=== PATIENT | female | born 1985 | race Caucasian/White ===

== ENCOUNTER 2017-05-16 06:43 | Emergency (ER) | payer OTHER ==
[~2017-05-16] VITALS: Ht 175.3 cm; Wt 152.4 kg
[~2017-05-16 06:43] MED LIST: ALBU90OI61 INH; ALPR.5 PO; AMOCLA500 PO; AMOX500 PO; CEPH500 PO; CRUTCH4 USE; CYCL10 PO; FAMO20 PO; HYDACE5 PO; HYDACE5325 PO; HYDR1TAB94 PO; IBUP800 PO; LORA.5; LORA1; LORA1 PO; LORA2 PO; METO50; NAPR500 PO; NITR100CA PO; Norco 5-325 Ta1 EACH PO; OXYACE5T PO; PENVK250 PO; PRED20 PO; PROACE100 PO; PROM25 PO; PSEU120ER PO; Percocet 5-3251 EACH PO; RXONDA4ODT MM; SULTRIDS PO; SUMA25 PO; Zofran Odt8 MG SL
[2017-05-16 07:49] LABS: BASOPHILS ABSOLUTE AUTO 0.07 K/mm3 (0.00-0.23); BASOPHILS PERCENT AUTO 1 % (0-2); EOSINOPHILS ABSOLUTE AUTO 0.43 K/mm3 (0.00-0.68); EOSINOPHILS PERCENT AUTO 5 % (0-6); Hemoglobin 12.1 g/dL (11.5-16.0); IMMATURE GRAN ABSOLUTE AUTO 0.04 K/mm3 (0.00-0.10); IMMATURE GRAN PERCENT AUTO 0 % (0-1); LYMPHOCYTES ABSOLUTE AUTO 3.66 K/mm3 (0.84-5.20); LYMPHOCYTES PERCENT AUTO 39 % (21-46); MONOCYTES ABSOLUTE AUTO 0.55 K/mm3 (0.16-1.47); MONOCYTES PERCENT AUTO 6 % (4-13); Mean Corpuscular HGB 28.2 pg (26.0-34.0); Mean Corpuscular HGB Conc 31.8 g/dL (31.5-36.5); Mean Corpuscular Volume 89 fL (80-100); Mean Platelet Volume 10.1 fL (9.1-12.4); NEUTROPHILS ABSOLUTE AUTO 4.58 K/mm3 (1.96-9.15); NEUTROPHILS PERCENT AUTO 49 % (41-73); Platelet Count 255 K/mm3 (150-400); RDW Coefficient Variation 12.7 % (11.7-14.2); Red Blood Cell Count 4.29 M/mm3 (3.80-5.20); White Blood Cell Count 9.33 K/mm3 (4.00-11.30)
[2017-05-16 08:10] LABS: Alanine Aminotransfer (ALT/SGP 28 U/L (12-78); Albumin, Blood 2.9 g/dL (3.4-5.0); Albumin/Globulin Ratio 0.8 (0.8-1.8); Alk Phos 89 U/L (50-136); Anion Gap 7 mmol/L (6-16); Aspartate Aminotrans (AST/SGOT 18 U/L (12-37); Bilirubin, Total 0.4 mg/dL (0.1-1.0); Blood Urea Nitrogen 13 mg/dL (8-24); Bun/Creatinine Ratio 19.4 (12.0-20.0); CO2, Blood 27 mmol/L (21-32); Calcium, Blood 8.1 mg/dL (8.5-10.1); Chloride, Blood 106 mmol/L (98-108); Creatinine, Blood 0.67 mg/dL (0.40-1.00); Globulin, Blood 3.7 g/dL (2.2-4.0); Glomerular Filtration Rate >60 (60-); Glucose, Blood 92 mg/dL (70-99); Potassium, Blood 3.9 mmol/L (3.5-5.5); Sodium, Blood 140 mmol/L (136-145); Total Protein, Blood 6.6 g/dL (6.4-8.2); Troponin I <0.015 ng/mL (0.000-0.040)
[2017-05-16 08:17] LABS: Bilirubin, Urine Neg (Neg); Blood, Urine 1+ (Neg); Glucose Qualitative, Urine Neg (Neg); Ketones, Urine Neg (Neg); Leukocyte Esterase, Urine 2+ (Neg); Nitrite, Urine Pos (Neg); Protein, Urine 1+ (Neg); Specific Gravity, Urine 1.025 (1.003-1.022); Urobilinogen, Urine NORM (Normal)
[2017-05-16 08:25] LABS: Appearance, Urine Hazy (Clear); Color, Urine Yellow (P-Yellow)
[2017-05-16 08:30] LABS: Bacteria Mod /hpf; Squamous Epithelial Cells Mod /hpf (Few)
[2017-08-20] MEDS ORDERED: ENOX100I (21:53)
[2017-08-20] MEDS ORDERED: Verotin-Gr Cap1 EACH PO (21:53)
[2017-08-20] MEDS ORDERED: FOLI400 PO (21:54)
[2017-08-20] MEDS ORDERED: Benadryl25 MG PO (22:57)
[2018-02-26] MEDS ORDERED: Aspir 8181 MG PO (05:58)
[2018-03-01] MEDS ORDERED: Percocet 5-3251 EACH PO (09:55)
[2018-03-01] MEDS ORDERED: Coumadin1 MG (09:56)
[2018-03-01] MEDS ORDERED: WARF5 (09:56)
== END 2017-05-16 09:35 | disposition home or self-care (01) ==
LOC: ER 06:43
PROVIDERS: Emergency Medicine
DX: F41.9 Anxiety disorder, unspecified (principal); E88.09 Other disorders of plasma-protein metabolism, not elsewhere classified; Z88.8 Allergy status to other drugs, medicaments and biological substances; Z88.5 Allergy status to narcotic agent
CPT/HCPCS: 36415; 71046; 80053; 81001; 81025; 83735; 84484; 85025; 87086; 93005; 93010; 99283

== ENCOUNTER 2017-08-22 08:10 | Emergency (ER) | payer OTHER ==
[~2017-08-22] VITALS: Ht 175.3 cm; Wt 153.3 kg
[~2017-08-22 08:10] MED LIST changes: +Benadryl25 MG PO; +ENOX100I; +FOLI400 PO; +Verotin-Gr Cap1 EACH PO
[2017-08-22] MEDS ORDERED: Vitamin B Comple1 EA (08:32)
== END 2017-08-22 09:16 | disposition home or self-care (01) ==
LOC: ER 08:10
DX: O99.111 Other diseases of the blood and blood-forming organs and certain disorders involving the immune mechanism complicating pregnancy, first trimester (principal); D68.51 Activated protein C resistance; O99.341 Other mental disorders complicating pregnancy, first trimester; F41.9 Anxiety disorder, unspecified; Z88.8 Allergy status to other drugs, medicaments and biological substances; Z88.5 Allergy status to narcotic agent; Z79.899 Other long term (current) drug therapy; Z3A.09 9 weeks gestation of pregnancy
CPT/HCPCS: 36415; 85730; 96372; 99283; J1644

== ENCOUNTER 2017-08-25 20:08 | Emergency (ER) | payer OTHER ==
[~2017-08-25] VITALS: Ht 175.3 cm; Wt 153.3 kg
[~2017-08-25 20:08] MED LIST changes: +Vitamin B Comple1 EA
[2017-08-25 21:24] LABS: BASOPHILS ABSOLUTE AUTO 0.05 K/mm3 (0.00-0.23); BASOPHILS PERCENT AUTO 0 % (0-2); EOSINOPHILS ABSOLUTE AUTO 0.73 K/mm3 (0.00-0.68); EOSINOPHILS PERCENT AUTO 6 % (0-6); Hematocrit 37.1 % (33.0-51.0); Hemoglobin 12.1 g/dL (11.5-16.0); IMMATURE GRAN ABSOLUTE AUTO 0.04 K/mm3 (0.00-0.10); IMMATURE GRAN PERCENT AUTO 0 % (0-1); LYMPHOCYTES ABSOLUTE AUTO 3.81 K/mm3 (0.84-5.20); LYMPHOCYTES PERCENT AUTO 32 % (21-46); MONOCYTES ABSOLUTE AUTO 0.67 K/mm3 (0.16-1.47); MONOCYTES PERCENT AUTO 6 % (4-13); Mean Corpuscular HGB 28.8 pg (26.0-34.0); Mean Corpuscular HGB Conc 32.6 g/dL (31.5-36.5); Mean Corpuscular Volume 88 fL (80-100); Mean Platelet Volume 10.3 fL (9.1-12.4); NEUTROPHILS ABSOLUTE AUTO 6.74 K/mm3 (1.96-9.15); NEUTROPHILS PERCENT AUTO 56 % (41-73); Platelet Count 270 K/mm3 (150-400); RDW Coefficient Variation 13.2 % (11.7-14.2); RDW Standard Deviation 42.3 fL (35.1-46.3); White Blood Cell Count 12.04 K/mm3 (4.00-11.30)
[2017-08-25 21:54] LABS: International Normalized Ratio 0.93; Prothrombin Time Results 9.6 Sec (9.7-11.5)
== END 2017-08-25 22:07 | disposition home or self-care (01) ==
LOC: ER 20:08
PROVIDERS: Physician Assistant
DX: O99.89 Other specified diseases and conditions complicating pregnancy, childbirth and the puerperium (principal); R21 Rash and other nonspecific skin eruption; Z3A.10 10 weeks gestation of pregnancy; Z88.8 Allergy status to other drugs, medicaments and biological substances; Z88.5 Allergy status to narcotic agent; Z79.899 Other long term (current) drug therapy
CPT/HCPCS: 36415; 85025; 85610; 85730; 99283

== ENCOUNTER 2018-05-06 11:33 | Emergency (ER) | payer OTHER ==
[~2018-05-06] VITALS: Ht 172.7 cm; Wt 156.5 kg
[~2018-05-06 11:33] MED LIST changes: +Aspir 8181 MG PO; +Coumadin1 MG; +WARF5
[2018-05-06] MEDS ORDERED: CLARITIN10 MG PO (12:22)
== END 2018-05-06 12:26 | disposition home or self-care (01) ==
LOC: ER 11:33
DX: L23.9 Allergic contact dermatitis, unspecified cause (principal); F41.9 Anxiety disorder, unspecified; Z88.8 Allergy status to other drugs, medicaments and biological substances; Z88.5 Allergy status to narcotic agent; Z79.899 Other long term (current) drug therapy; Z79.82 Long term (current) use of aspirin; Z79.01 Long term (current) use of anticoagulants
CPT/HCPCS: 99282

== ENCOUNTER 2019-03-06 15:28 | Emergency (ER) | payer OTHER ==
[~2019-03-06] VITALS: Ht 172.7 cm; Wt 163.3 kg
[~2019-03-06 15:28] MED LIST changes: +CLARITIN10 MG PO
[2019-03-06] MEDS ORDERED: IBU800 M1 PO (17:26)
== END 2019-03-06 17:32 | disposition home or self-care (01) ==
LOC: ER 15:28
DX: S93.402A Sprain of unspecified ligament of left ankle, initial encounter (principal); X50.9XXA Other and unspecified overexertion or strenuous movements or postures, initial encounter; Z88.8 Allergy status to other drugs, medicaments and biological substances; Z88.5 Allergy status to narcotic agent; Z79.82 Long term (current) use of aspirin; Z79.899 Other long term (current) drug therapy; Z79.01 Long term (current) use of anticoagulants; F41.9 Anxiety disorder, unspecified
CPT/HCPCS: 73610; 99283-25

== ENCOUNTER → 2019-08-08 | Outpatient (CLI) | payer OTHER ==
[~2019-08-08] MED LIST changes: +IBU800 M1 PO
== END ==
LOC: LAB SHORT 11:08 → LAB 11:08
DX: R82.79 Other abnormal findings on microbiological examination of urine (principal); R82.90 Unspecified abnormal findings in urine
CPT/HCPCS: 87086

== ENCOUNTER 2019-08-18 03:21 | Emergency (ER) | payer OTHER ==
[~2019-08-18] VITALS: Ht 172.7 cm; Wt 158.8 kg
[2019-08-18 04:22] LABS: BASOPHILS ABSOLUTE AUTO 0.09 K/mm3 (0.00-0.23); BASOPHILS PERCENT AUTO 1 % (0-2); EOSINOPHILS PERCENT AUTO 2 % (0-6); Hematocrit 40.1 % (33.0-51.0); Hemoglobin 12.7 g/dL (11.5-16.0); IMMATURE GRAN ABSOLUTE AUTO 0.05 K/mm3 (0.00-0.10); IMMATURE GRAN PERCENT AUTO 1 % (0-1); LYMPHOCYTES ABSOLUTE AUTO 3.34 K/mm3 (0.84-5.20); LYMPHOCYTES PERCENT AUTO 32 % (21-46); MONOCYTES ABSOLUTE AUTO 0.73 K/mm3 (0.16-1.47); MONOCYTES PERCENT AUTO 7 % (4-13); Mean Corpuscular HGB 27.6 pg (26.0-34.0); Mean Corpuscular HGB Conc 31.7 g/dL (31.5-36.5); Mean Corpuscular Volume 87 fL (80-100); Mean Platelet Volume 10.1 fL (9.1-12.4); NEUTROPHILS ABSOLUTE AUTO 6.14 K/mm3 (1.96-9.15); NEUTROPHILS PERCENT AUTO 58 % (41-73); Platelet Count 290 K/mm3 (150-400); RDW Standard Deviation 41.4 fL (35.1-46.3); White Blood Cell Count 10.55 K/mm3 (4.00-11.30)
[2019-08-18 04:43] LABS: Alanine Aminotransfer (ALT/SGP 25 U/L (12-78); Albumin/Globulin Ratio 0.8 (0.8-1.8); Alk Phos 108 U/L (50-136); Anion Gap 7 mmol/L (6-16); Aspartate Aminotrans (AST/SGOT 12 U/L (12-37); Bilirubin, Total 0.2 mg/dL (0.1-1.0); Blood Urea Nitrogen 15 mg/dL (8-24); Bun/Creatinine Ratio 22.5 (12.0-20.0); CO2, Blood 26 mmol/L (21-32); Calcium, Blood 8.2 mg/dL (8.5-10.1); Chloride, Blood 105 mmol/L (98-108); Creatinine, Blood 0.67 mg/dL (0.40-1.00); Globulin, Blood 3.9 g/dL (2.2-4.0); Glomerular Filtration Rate >60 (60-); Glucose, Blood 139 mg/dL (70-99); Potassium, Blood 3.9 mmol/L (3.5-5.5); Sodium, Blood 138 mmol/L (136-145); Total Protein, Blood 6.9 g/dL (6.4-8.2); Troponin I <0.015 ng/mL (0.000-0.040)
== END 2019-08-18 06:13 | disposition home or self-care (01) ==
LOC: ER 03:21
PROVIDERS: Emergency Medicine
DX: R00.2 Palpitations (principal); R07.9 Chest pain, unspecified; Z88.5 Allergy status to narcotic agent; Z88.8 Allergy status to other drugs, medicaments and biological substances; F41.9 Anxiety disorder, unspecified; Z79.899 Other long term (current) drug therapy
CPT/HCPCS: 36415; 71260; 80053; 83880; 84484; 85025; 93005; 93010; 99285-25; Q9967

== ENCOUNTER 2020-09-28 20:38 | Inpatient (IN) | payer OTHER ==
[~2020-09-28] VITALS: Ht 177.8 cm; Wt 155.0 kg
[2020-09-28 21:44] LABS: BASOPHILS ABSOLUTE AUTO 0.03 K/mm3 (0.00-0.23); BASOPHILS PERCENT AUTO 0 % (0-2); EOSINOPHILS ABSOLUTE AUTO 0.13 K/mm3 (0.00-0.68); EOSINOPHILS PERCENT AUTO 1 % (0-6); Hematocrit 38.5 % (33.0-51.0); Hemoglobin 12.5 g/dL (11.5-16.0); IMMATURE GRAN ABSOLUTE AUTO 0.08 K/mm3 (0.00-0.10); IMMATURE GRAN PERCENT AUTO 1 % (0-1); LYMPHOCYTES ABSOLUTE AUTO 3.84 K/mm3 (0.84-5.20); LYMPHOCYTES PERCENT AUTO 32 % (21-46); MONOCYTES ABSOLUTE AUTO 0.79 K/mm3 (0.16-1.47); MONOCYTES PERCENT AUTO 7 % (4-13); Mean Corpuscular HGB 29.6 pg (26.0-34.0); Mean Corpuscular HGB Conc 32.5 g/dL (31.5-36.5); Mean Corpuscular Volume 91 fL (80-100); Mean Platelet Volume 11.4 fL (9.1-12.4); NEUTROPHILS ABSOLUTE AUTO 7.32 K/mm3 (1.96-9.15); NEUTROPHILS PERCENT AUTO 60 % (41-73); Platelet Count 199 K/mm3 (150-400); RDW Coefficient Variation 15.9 % (11.7-14.2); RDW Standard Deviation 52.6 fL (35.1-46.3); Red Blood Cell Count 4.22 M/mm3 (3.80-5.20); White Blood Cell Count 12.19 K/mm3 (4.00-11.30)
[2020-09-28 22:20] LABS: SARS-Cov-2 (COVID-19) PCR, MMC NEGATIVE (NEGATIVE)
[2020-09-28 22:38] LABS: PCO2 Cord - Arterial 46.3 mmHg (40-50)
[2020-09-28 22:39] LABS: PO2 Cord - Arterial < 13 mmHg (16-20)
[2020-09-28 22:40] LABS: PCO2 Cord - Venous 39.5 mmHg (40-50); pH Umbilical Cord - Venous 7.43 (7.26-7.35)
[2020-09-28] MEDS ORDERED: PRENATAL TABLE1 EAC2 PO (22:58)
[2020-09-28] MEDS ORDERED: METF500 PO (22:59)
[2020-09-28] MEDS ORDERED: ASPI81CH PO (22:59)
[2020-09-28] MEDS ORDERED: MULVITB PO (22:59)
[2020-09-29 06:13] LABS: BASOPHILS ABSOLUTE AUTO 0.02 K/mm3 (0.00-0.23); BASOPHILS PERCENT AUTO 0 % (0-2); EOSINOPHILS ABSOLUTE AUTO 0.04 K/mm3 (0.00-0.68); EOSINOPHILS PERCENT AUTO 0 % (0-6); Hematocrit 34.5 % (33.0-51.0); IMMATURE GRAN ABSOLUTE AUTO 0.09 K/mm3 (0.00-0.10); IMMATURE GRAN PERCENT AUTO 1 % (0-1); LYMPHOCYTES ABSOLUTE AUTO 2.94 K/mm3 (0.84-5.20); LYMPHOCYTES PERCENT AUTO 20 % (21-46); MONOCYTES ABSOLUTE AUTO 0.67 K/mm3 (0.16-1.47); MONOCYTES PERCENT AUTO 5 % (4-13); Mean Corpuscular HGB 28.9 pg (26.0-34.0); Mean Corpuscular HGB Conc 31.9 g/dL (31.5-36.5); Mean Corpuscular Volume 91 fL (80-100); Mean Platelet Volume 11.2 fL (9.1-12.4); NEUTROPHILS ABSOLUTE AUTO 10.85 K/mm3 (1.96-9.15); NEUTROPHILS PERCENT AUTO 74 % (41-73); Platelet Count 165 K/mm3 (150-400); RDW Coefficient Variation 15.7 % (11.7-14.2); RDW Standard Deviation 51.2 fL (35.1-46.3); White Blood Cell Count 14.61 K/mm3 (4.00-11.30)
--- NOTE | 2020-09-29 06:28 | NUR ---
Pt requested pain meds,notified nurse.
[2020-09-29 06:29] LABS: International Normalized Ratio 0.94; Prothrombin Time Results 10.2 Sec (9.7-11.5)
--- NOTE | 2020-09-29 12:13 | NUR ---
09/29/20 1213 Lyn De Souza VERIFICATIONS: EDIT CHART.
--- NOTE | 2020-09-29 13:04 | NUR ---
PACU CHARTING INFORMATION OBTAINED FROM ANESTHESIA RECORD AND VITAL SIGNS INFORMATION AND COMPLETED PER THE OR REQUEST
[2020-09-30 05:41] LABS: International Normalized Ratio 0.96; Prothrombin Time Results 10.4 Sec (9.7-11.5)
--- NOTE | 2020-09-30 15:21 | NUR ---
Discharge instructions give, pt denies any further questions. bands matched, hugs removed, pt left in stable condition with , walked to their vehicle. medication visualized by rn that pt will continue taking at home
== END 2020-09-30 15:10 | disposition home or self-care (01) | DRG 785 ==
LOC: OBS 20:38 → BC 20:40 → OBS 21:06 → BC 21:08
PROVIDERS: Obstetrics & Gynecology; ADMIT Nurse Practitioner Obstetrics & Gynecology
PROC: 10D00Z1 Extraction of Products of Conception, Low, Open Approach (ICD-10-PCS; principal; 2020-09-28 21:30)
PROC: 0UT70ZZ Resection of Bilateral Fallopian Tubes, Open Approach (ICD-10-PCS; 2020-09-28 21:30)
DX: O46.093 Antepartum hemorrhage with other coagulation defect, third trimester (principal); Z3A.36 36 weeks gestation of pregnancy; Z37.0 Single live birth; Z20.822 Contact with and (suspected) exposure to COVID-19; Z30.2 Encounter for sterilization; O99.214 Obesity complicating childbirth; E66.01 Morbid (severe) obesity due to excess calories; O24.425 Gestational diabetes mellitus in childbirth, controlled by oral hypoglycemic drugs; Z88.8 Allergy status to other drugs, medicaments and biological substances; Z79.82 Long term (current) use of aspirin; Z79.84 Long term (current) use of oral hypoglycemic drugs
CPT/HCPCS: 36415; 59025; 82803; 82947; 85025; 85610; 85730; 86850; 86900; 86901; 86923; 88302; A9270; J0171; J0690; J1650; J1885; J2001; J2370; J2405; J2550; J2590; J2765; J3010; J3360; J7120; U0004

== ENCOUNTER 2020-10-18 23:40 | Emergency (ER) | payer OTHER ==
[~2020-10-18] VITALS: Ht 172.7 cm; Wt 154.2 kg
[~2020-10-18 23:40] MED LIST changes: +ASPI81CH PO; +METF500 PO; +MULVITB PO; +PRENATAL TABLE1 EAC2 PO
[2020-10-19 00:30] LABS: BASOPHILS ABSOLUTE AUTO 0.07 K/mm3 (0.00-0.23); BASOPHILS PERCENT AUTO 1 % (0-2); EOSINOPHILS ABSOLUTE AUTO 1.02 K/mm3 (0.00-0.68); EOSINOPHILS PERCENT AUTO 10 % (0-6); Hemoglobin 12.6 g/dL (11.5-16.0); IMMATURE GRAN ABSOLUTE AUTO 0.04 K/mm3 (0.00-0.10); IMMATURE GRAN PERCENT AUTO 0 % (0-1); LYMPHOCYTES ABSOLUTE AUTO 4.34 K/mm3 (0.84-5.20); LYMPHOCYTES PERCENT AUTO 43 % (21-46); MONOCYTES ABSOLUTE AUTO 0.57 K/mm3 (0.16-1.47); MONOCYTES PERCENT AUTO 6 % (4-13); Mean Corpuscular HGB 29.6 pg (26.0-34.0); Mean Corpuscular HGB Conc 32.3 g/dL (31.5-36.5); Mean Corpuscular Volume 92 fL (80-100); Mean Platelet Volume 10.6 fL (9.1-12.4); NEUTROPHILS ABSOLUTE AUTO 3.98 K/mm3 (1.96-9.15); NEUTROPHILS PERCENT AUTO 40 % (41-73); Platelet Count 267 K/mm3 (150-400); RDW Coefficient Variation 14.5 % (11.7-14.2); RDW Standard Deviation 48.8 fL (35.1-46.3); Red Blood Cell Count 4.25 M/mm3 (3.80-5.20); White Blood Cell Count 10.02 K/mm3 (4.00-11.30)
[2020-10-19 00:44] LABS: International Normalized Ratio 2.17; Prothrombin Time Results 22.4 Sec (9.7-11.5)
[2020-10-19 00:53] LABS: Alanine Aminotransfer (ALT/SGP 38 U/L (12-78); Albumin/Globulin Ratio 0.8 (0.8-1.8); Alk Phos 115 U/L (50-136); Anion Gap 7 mmol/L (6-16); Aspartate Aminotrans (AST/SGOT 14 U/L (12-37); Bilirubin, Total 0.3 mg/dL (0.1-1.0); Blood Urea Nitrogen 9 mg/dL (8-24); Bun/Creatinine Ratio 12.2 (12.0-20.0); CO2, Blood 25 mmol/L (21-32); Calcium, Blood 8.6 mg/dL (8.5-10.1); Chloride, Blood 109 mmol/L (98-108); Creatinine, Blood 0.74 mg/dL (0.40-1.00); Globulin, Blood 3.7 g/dL (2.2-4.0); Glomerular Filtration Rate >60 (60-); Glucose, Blood 90 mg/dL (70-99); Potassium, Blood 3.6 mmol/L (3.5-5.5); Sodium, Blood 141 mmol/L (136-145); Total Protein, Blood 6.7 g/dL (6.4-8.2); Troponin I <0.015 ng/mL (0.000-0.040)
[2020-10-19 01:06] LABS: Bilirubin, Urine Neg (Neg); Blood, Urine 1+ (Neg); Glucose Qualitative, Urine Neg (Neg); Ketones, Urine Neg (Neg); Leukocyte Esterase, Urine 1+ (Neg); Nitrite, Urine Neg (Neg); Protein, Urine Neg (Neg); Source, Urine Clean Catch; Specific Gravity, Urine 1.005 (1.003-1.022); Urobilinogen, Urine NORM (Normal)
[2020-10-19 01:12] LABS: Appearance, Urine Clear (Clear); Bacteria Not Seen /hpf; Color, Urine Yellow (P-Yellow); Red Blood Cells, Urine Rare /hpf (0-2); Squamous Epithelial Cells Few /hpf (Few); White Blood Cells, Urine Rare /hpf (0-5)
[2020-10-19] MEDS ORDERED: WARF10 PO (01:15)
[2020-10-19] MEDS ORDERED: WARF1 PO (01:16)
[2020-10-19] MEDS ORDERED: METF500 PO (01:16)
[2020-10-19] MEDS ORDERED: ASPIR 8181 M1 PO (01:17)
[2020-10-19 01:23] LABS: SARS-Cov-2 (COVID-19) PCR, MMC NEGATIVE (NEGATIVE)
[2020-10-19] MEDS ORDERED: NIFE30ER PO (05:50)
== END 2020-10-19 06:11 | disposition home or self-care (01) ==
LOC: ER 23:40
PROVIDERS: Emergency Medicine
DX: I10 Essential (primary) hypertension (principal); Z79.01 Long term (current) use of anticoagulants; Z79.84 Long term (current) use of oral hypoglycemic drugs; Z79.82 Long term (current) use of aspirin; Z20.822 Contact with and (suspected) exposure to COVID-19; Z88.5 Allergy status to narcotic agent; Z79.899 Other long term (current) drug therapy
CPT/HCPCS: 36415; 70450; 71045; 80053; 81001; 83880; 84484; 85025; 85610; 93005; 93010; 99284-25; A9270; U0004

== ENCOUNTER 2020-12-04 19:23 | Emergency (ER) | payer OTHER ==
[~2020-12-04] VITALS: Ht 172.7 cm; Wt 151.9 kg
[~2020-12-04 19:23] MED LIST changes: +ASPIR 8181 M1 PO; +NIFE30ER PO; +WARF1 PO; +WARF10 PO
[2020-12-04 20:08] LABS: BASOPHILS ABSOLUTE AUTO 0.05 K/mm3 (0.00-0.23); BASOPHILS PERCENT AUTO 1 % (0-2); EOSINOPHILS ABSOLUTE AUTO 0.28 K/mm3 (0.00-0.68); EOSINOPHILS PERCENT AUTO 3 % (0-6); Hematocrit 39.5 % (33.0-51.0); Hemoglobin 12.9 g/dL (11.5-16.0); IMMATURE GRAN ABSOLUTE AUTO 0.05 K/mm3 (0.00-0.10); IMMATURE GRAN PERCENT AUTO 1 % (0-1); LYMPHOCYTES PERCENT AUTO 33 % (21-46); MONOCYTES ABSOLUTE AUTO 0.64 K/mm3 (0.16-1.47); MONOCYTES PERCENT AUTO 6 % (4-13); Mean Corpuscular HGB 29.9 pg (26.0-34.0); Mean Corpuscular HGB Conc 32.7 g/dL (31.5-36.5); Mean Corpuscular Volume 92 fL (80-100); Mean Platelet Volume 9.6 fL (9.1-12.4); NEUTROPHILS ABSOLUTE AUTO 6.45 K/mm3 (1.96-9.15); NEUTROPHILS PERCENT AUTO 58 % (41-73); Platelet Count 268 K/mm3 (150-400); RDW Coefficient Variation 13.3 % (11.7-14.2); RDW Standard Deviation 45.2 fL (35.1-46.3); Red Blood Cell Count 4.31 M/mm3 (3.80-5.20); White Blood Cell Count 11.07 K/mm3 (4.00-11.30)
[2020-12-04 20:31] LABS: Alanine Aminotransfer (ALT/SGP 43 U/L (12-78); Albumin/Globulin Ratio 0.7 (0.8-1.8); Alk Phos 118 U/L (50-136); Anion Gap 5 mmol/L (6-16); Aspartate Aminotrans (AST/SGOT 11 U/L (12-37); Beta HCG, Quantitative, Serum <1 mIU/mL (0-3); Bilirubin, Total 0.4 mg/dL (0.1-1.0); Blood Urea Nitrogen 12 mg/dL (8-24); Bun/Creatinine Ratio 15.7 (12.0-20.0); CO2, Blood 29 mmol/L (21-32); Calcium, Blood 8.6 mg/dL (8.5-10.1); Chloride, Blood 106 mmol/L (98-108); Creatinine, Blood 0.77 mg/dL (0.40-1.00); Globulin, Blood 4.1 g/dL (2.2-4.0); Glomerular Filtration Rate >60 (60-); Glucose, Blood 113 mg/dL (70-99); Potassium, Blood 3.8 mmol/L (3.5-5.5); Sodium, Blood 140 mmol/L (136-145); Total Protein, Blood 7.1 g/dL (6.4-8.2); Troponin I <0.015 ng/mL (0.000-0.040)
[2020-12-04 21:58] LABS: Source, Urine Clean Catch
[2020-12-04 22:05] LABS: Bilirubin, Urine Neg (Neg); Blood, Urine Neg (Neg); Glucose Qualitative, Urine Neg (Neg); Ketones, Urine Neg (Neg); Leukocyte Esterase, Urine 2+ (Neg); Nitrite, Urine Neg (Neg); Protein, Urine 1+ (Neg); Specific Gravity, Urine 1.025 (1.003-1.022); Urobilinogen, Urine 1+ (Normal)
[2020-12-04 22:08] LABS: Appearance, Urine Hazy (Clear); Color, Urine Yellow (P-Yellow)
[2020-12-04 22:09] LABS: Amorphous Light (0-Heavy); Bacteria Many /hpf; Mucus Mod (0-Heavy); Red Blood Cells, Urine Not Seen /hpf (0-2); Squamous Epithelial Cells Many /hpf (Few)
[2020-12-04] MEDS ORDERED: IBUP800 PO (22:32)
[2020-12-04] MEDS ORDERED: AMOCLA875 PO (23:47)
== END 2020-12-05 00:02 | disposition home or self-care (01) ==
LOC: ER 19:23
PROVIDERS: Emergency Medicine Emergency Medical Services
DX: K57.32 Diverticulitis of large intestine without perforation or abscess without bleeding (principal); Z88.8 Allergy status to other drugs, medicaments and biological substances; Z88.5 Allergy status to narcotic agent; Z79.899 Other long term (current) drug therapy; Z79.82 Long term (current) use of aspirin; Z79.84 Long term (current) use of oral hypoglycemic drugs
CPT/HCPCS: 36415; 71045; 74176; 80053; 81001; 83690; 84484; 84702; 85025; 87086; 93005; 93010; 99284-25

== ENCOUNTER → 2021-05-03 | Outpatient (CLI) | payer OTHER ==
[~2021-05-03] MED LIST changes: +AMOCLA875 PO
[2021-05-03 15:32] LABS: BASOPHILS ABSOLUTE AUTO 0.05 K/mm3 (0.00-0.23); BASOPHILS PERCENT AUTO 1 % (0-2); EOSINOPHILS ABSOLUTE AUTO 0.22 K/mm3 (0.00-0.68); EOSINOPHILS PERCENT AUTO 3 % (0-6); Hematocrit 42.8 % (33.0-51.0); Hemoglobin 13.9 g/dL (11.5-16.0); IMMATURE GRAN ABSOLUTE AUTO 0.03 K/mm3 (0.00-0.10); IMMATURE GRAN PERCENT AUTO 0 % (0-1); LYMPHOCYTES ABSOLUTE AUTO 2.71 K/mm3 (0.84-5.20); LYMPHOCYTES PERCENT AUTO 31 % (21-46); MONOCYTES ABSOLUTE AUTO 0.57 K/mm3 (0.16-1.47); MONOCYTES PERCENT AUTO 7 % (4-13); Mean Corpuscular HGB 30.1 pg (26.0-34.0); Mean Corpuscular HGB Conc 32.5 g/dL (31.5-36.5); Mean Corpuscular Volume 93 fL (80-100); Mean Platelet Volume 10.2 fL (9.1-12.4); NEUTROPHILS ABSOLUTE AUTO 5.11 K/mm3 (1.96-9.15); NEUTROPHILS PERCENT AUTO 59 % (41-73); Platelet Count 282 K/mm3 (150-400); RDW Coefficient Variation 11.8 % (11.7-14.2); RDW Standard Deviation 39.9 fL (35.1-46.3); Red Blood Cell Count 4.62 M/mm3 (3.80-5.20); White Blood Cell Count 8.69 K/mm3 (4.00-11.30)
[2021-05-03 15:42] LABS: Anion Gap 10 mmol/L (6-16); Blood Urea Nitrogen 14 mg/dL (8-24); Bun/Creatinine Ratio 21.2 (12.0-20.0); CO2, Blood 30 mmol/L (21-32); Calcium, Blood 9.1 mg/dL (8.5-10.1); Chloride, Blood 102 mmol/L (98-108); Creatinine, Blood 0.66 mg/dL (0.40-1.00); Glomerular Filtration Rate >60 (60-); Glucose, Blood 92 mg/dL (70-99); Sodium, Blood 142 mmol/L (136-145)
== END ==
LOC: LAB SHORT 15:29
PROVIDERS: Physician Assistant Medical
DX: D68.51 Activated protein C resistance (principal)
CPT/HCPCS: 80048; 85025; 85379

== ENCOUNTER 2021-06-18 13:08 | Emergency (ER) | payer OTHER ==
[~2021-06-18] VITALS: Ht 172.7 cm; Wt 154.2 kg
[2021-06-18] MEDS ORDERED: Cholecalciferol1 GM PO (16:50)
== END 2021-06-18 17:49 | disposition home or self-care (01) ==
LOC: ER 13:08
DX: M79.662 Pain in left lower leg (principal); Z88.5 Allergy status to narcotic agent; Z88.8 Allergy status to other drugs, medicaments and biological substances; Z79.899 Other long term (current) drug therapy; Z79.84 Long term (current) use of oral hypoglycemic drugs; Z79.82 Long term (current) use of aspirin
CPT/HCPCS: 93971; 99283-25

== ENCOUNTER 2022-09-30 06:25 | Day surgery (SDC) | payer OTHER ==
[~2022-09-30] VITALS: Ht 172.7 cm; Wt 163.8 kg
[~2022-09-30 06:25] MED LIST changes: +Cholecalciferol1 GM PO; +Ventolin/Prove6.7 GM INH
--- NOTE | 2022-09-30 06:44 | NUR ---
09/30/22 [address] MARTINEZ, SEE ANESTHESIA RECORDS.
[2022-09-30 06:54] VITALS: BP 142/93
--- NOTE | 2022-09-30 07:13 | NUR ---
Ambulatory in Day Surgery History, Chart, Medications and Allergies reviewed before start of procedure. Pre-Op teaching done. Pt verbalizes understanding. Patient States Post-Procedure ride home has been arranged.
[2022-09-30 08:44] VITALS: BP 130/92
--- NOTE | 2022-09-30 08:45 | NUR ---
REPORT RECIEVED. PT SITTING UP IN BED. AT BEDSIDE. DR BLANK AT BEDSIDE. VSS, ON ROOM AIR
[2022-09-30 08:56] VITALS: BP 132/81
--- NOTE | 2022-09-30 08:58 | NUR ---
PT TOLERAING PO FLUIDS. C/O NAUSEA. COOL RAG APPLIED TO FOREHEAD. WILL CONTINUE TO MONITOR
--- NOTE | 2022-09-30 09:08 | NUR ---
PT STILL C/O NAUSEA. ORDERS NOTED. COOL RAG ON FACE AND FAN ON FACE.
[2022-09-30 09:11] VITALS: BP 115/84
[2022-09-30 09:19] VITALS: BP 132/84
--- NOTE | 2022-09-30 09:34 | NUR ---
DR FLOREZ CONSULTED FOR PERSISTANT NAUSEA. NEW ORDER RECIEVED AND REVIEWD.
[2022-09-30 09:38] VITALS: BP 113/64
--- NOTE | 2022-09-30 10:03 | NUR ---
PT VOMITED, THEN REPORTS THAT NAUSEA HAS PASSED AND FEELS BETTER. UP TO VOID Patient up to Ambulate independently. Gait steady. Discharge instructions reviewed with patient. Patient verbalizes understanding. Copy given to patient to take home. Discharged via wheelchair to private car for ride home.
== END 2022-09-30 10:06 | disposition home or self-care (01) ==
LOC: ORSCMMR 06:25 → ORD 08:00 → ORSCMMR 08:00
PROVIDERS: Internal Medicine Gastroenterology
PROC: 0DB98ZX Excision of Duodenum, Via Natural or Artificial Opening Endoscopic, Diagnostic (ICD-10-PCS; principal; 2022-09-30 08:00)
PROC: 0DB48ZX Excision of Esophagogastric Junction, Via Natural or Artificial Opening Endoscopic, Diagnostic (ICD-10-PCS; principal; 2022-09-30 08:00)
PROC: 0DJD8ZZ Inspection of Lower Intestinal Tract, Via Natural or Artificial Opening Endoscopic (ICD-10-PCS; principal; 2022-09-30 08:00)
PROC: 0DB78ZX Excision of Stomach, Pylorus, Via Natural or Artificial Opening Endoscopic, Diagnostic (ICD-10-PCS; principal; 2022-09-30 08:00)
DX: K62.5 Hemorrhage of anus and rectum (principal); K29.80 Duodenitis without bleeding; K21.9 Gastro-esophageal reflux disease without esophagitis; K29.70 Gastritis, unspecified, without bleeding; K57.30 Diverticulosis of large intestine without perforation or abscess without bleeding; E66.01 Morbid (severe) obesity due to excess calories; Z68.43 Body mass index [BMI] 50.0-59.9, adult; F31.9 Bipolar disorder, unspecified
CPT/HCPCS: 88305; 88342; J2001; J2405; J2704; J2765; J3010; J7120

== ENCOUNTER → 2023-06-21 | Outpatient (CLI) | payer OTHER | END | disposition home or self-care (01) | LOC: LAB SHORT 12:03 → LAB 12:03 | DX: N39.0 Urinary tract infection, site not specified (principal) | CPT/HCPCS: 87077; 87086; 87186 ==

== ENCOUNTER 2023-10-03 09:23 | Emergency (ER) | payer OTHER ==
[~2023-10-03] VITALS: Ht 172.7 cm; Wt 158.8 kg
[2023-10-03] MEDS ORDERED: Meclizine HCl 25 MG Tab PO ONE (10:40)
[2023-10-03] MEDS ORDERED: Lactated Ringer's 1,000 ML IV ONE (10:40)
[2023-10-03 10:55] LABS: BASOPHILS ABSOLUTE AUTO 0.07 K/mm3 (0.00-0.23); BASOPHILS PERCENT AUTO 1 % (0-2); EOSINOPHILS ABSOLUTE AUTO 0.25 K/mm3 (0.00-0.68); EOSINOPHILS PERCENT AUTO 3 % (0-6); Hematocrit 40.7 % (33.0-51.0); Hemoglobin 13.2 g/dL (11.5-16.0); IMMATURE GRAN ABSOLUTE AUTO 0.02 K/mm3 (0.00-0.10); IMMATURE GRAN PERCENT AUTO 0 % (0-1); LYMPHOCYTES ABSOLUTE AUTO 2.62 K/mm3 (0.84-5.20); LYMPHOCYTES PERCENT AUTO 32 % (21-46); MONOCYTES ABSOLUTE AUTO 0.42 K/mm3 (0.16-1.47); MONOCYTES PERCENT AUTO 5 % (4-13); Mean Corpuscular HGB 28.6 pg (26.0-34.0); Mean Corpuscular HGB Conc 32.4 g/dL (31.5-36.5); Mean Corpuscular Volume 88 fL (80-100); Mean Platelet Volume 9.8 fL (9.1-12.4); NEUTROPHILS ABSOLUTE AUTO 4.71 K/mm3 (1.96-9.15); NEUTROPHILS PERCENT AUTO 58 % (41-73); Platelet Count 304 K/mm3 (150-400); RDW Coefficient Variation 13.2 % (11.7-14.2); RDW Standard Deviation 42.7 fL (35.1-46.3); Red Blood Cell Count 4.61 M/mm3 (3.80-5.20); White Blood Cell Count 8.09 K/mm3 (4.00-11.30)
[2023-10-03 11:17] LABS: Albumin, Blood 3.4 g/dL (3.4-5.0); Albumin/Globulin Ratio 0.9 (0.8-1.8); Bilirubin, Total 0.8 mg/dL (0.1-1.0); Bun/Creatinine Ratio 19.1 (12.0-20.0); Calcium, Blood 8.7 mg/dL (8.5-10.1); Creatinine, Blood 0.73 mg/dL (0.40-1.00); Globulin, Blood 3.7 g/dL (2.2-4.0); Potassium, Blood 3.8 mmol/L (3.5-5.5); Total Protein, Blood 7.1 g/dL (6.4-8.2)
[2023-10-03 13:02] LABS: Influenza A, PCR NEGATIVE (NEGATIVE); Influenza B, PCR NEGATIVE (NEGATIVE); Resp Syncytial Virus, PCR NEGATIVE (NEGATIVE); SARS-Cov-2 (COVID-19) PCR, MMC NEGATIVE (NEGATIVE)
[2023-10-03 13:45] VITALS: BP 128/69
[2023-10-03] MEDS ORDERED: MECL25 PO (14:00)
== END 2023-10-03 14:05 | disposition home or self-care (01) ==
LOC: ER 09:23
PROVIDERS: Emergency Medicine; Physician Assistant
DX: R42 Dizziness and giddiness (principal); Z88.5 Allergy status to narcotic agent; Z88.8 Allergy status to other drugs, medicaments and biological substances
CPT/HCPCS: 0241U; 80053; 85025; 93005; 93010; 96360; 99284-25; A9270; J7120

== ENCOUNTER → 2024-10-26 | Outpatient (CLI) | payer OTHER ==
[~2024-10-26] MED LIST changes: +MECL25 PO
== END ==
LOC: LAB 19:06 → LAB SHORT 19:06
DX: R30.0 Dysuria (principal)
CPT/HCPCS: 87077; 87086; 87186